=== PATIENT | female | born 1960 | race Caucasian/White ===

== ENCOUNTER → 2018-03-07 | Outpatient (CLI) | payer OTHER | LOC: MAMMO 09:13 | DX: Z12.31 Encounter for screening mammogram for malignant neoplasm of breast (principal) ==

== ENCOUNTER → 2020-04-28 | Outpatient (CLI) | payer OTHER | LOC: LAB 15:13 | DX: R07.9 Chest pain, unspecified (principal) ==

== ENCOUNTER → 2020-11-11 | Outpatient (CLI) | payer OTHER | LOC: MAMMO 10-27 09:15 | DX: Z12.31 Encounter for screening mammogram for malignant neoplasm of breast (principal) ==

== ENCOUNTER → 2022-05-31 | Outpatient (CLI) | payer OTHER | LOC: MAMMO 08:30 | DX: Z12.31 Encounter for screening mammogram for malignant neoplasm of breast (principal) ==

== ENCOUNTER → 2024-10-01 | Outpatient (CLI) | payer MEDICARE, BC | LOC: MAMMO 07:18 | DX: N63.15 Unspecified lump in the right breast, overlapping quadrants (principal); Z78.0 Asymptomatic menopausal state ==